=== PATIENT | female | born 1975 | race Caucasian/White ===

== ENCOUNTER 2017-12-14 15:43 | Emergency (ER) | payer OTHER ==
--- NOTE | 2017-12-14 15:48 | PDOC ---
Rapid Medical Evaluation Time Seen by Provider: 12/14/17 15:46 Medical Evaluation: Allergies Allergy/AdvReac Type Severity Reaction Status Date / Time Penicillins Allergy Rash Verified 09/05/14 07:06 I have performed a brief in-person evaluation of this patient. The patient presents with a chief complaint of: laceration to right index finger Pertinent physical exam findings: horizontal laceration to right distal finger pad I have ordered the following: tetanus The patient will proceed to the ED for further evaluation.
[2017-12-14 15:49] VITALS: BP 125/77; PULSE 78; TEMP 98; BMI 23.3
[2017-12-14] MEDS ORDERED: DIPHTH,PERTUSS(ACELL),TET 0.5 ML DISP.SYRIN IM ONE (15:49)
--- NOTE | 2017-12-14 15:53 | PDOC ---
History of Present Illness - General Chief Complaint: Laceration Stated Complaint: LT FINGER LACERATION Time Seen by Provider: 12/14/17 15:46 History Source: Patient Exam Limitations: No Limitations - History of Present Illness Initial Comments: 12/14/17 18:42 42 yr female with laceration to the left index finger at home using mandolin. unable to control the bleeding. Timing/Duration: reports: just prior to arrival Past History - Past Medical History Allergies/Adverse Reactions: Allergies Allergy/AdvReac Type Severity Reaction Status Date / Time clindamycin Allergy Verified 12/14/17 15:47 Penicillins Allergy Rash Verified 12/14/17 15:47 Home Medications: Ambulatory Orders NK [No Known Home Medication] 12/14/17 COPD: No - Surgical History Abdominal Surgery: Yes (tubal ligation) Appendectomy: Yes - Suicide/Smoking/Psychosocial Hx Smoking History: Former smoker Have you smoked in the past 12 months: No Information on smoking cessation initiated: No Hx Alcohol Use: Yes (occas) Drug/Substance Use Hx: No Substance Use Type: None Hx Substance Use Treatment: No Review of Systems - Review of Systems Able to Perform ROS?: Yes Is the patient limited Pashto proficient: No *Physical Exam - Vital Signs Last Vital Signs Temp Pulse Resp BP Pulse Ox 98.0 F 78 18 125/77 100 12/14/17 15:47 12/14/17 15:47 12/14/17 15:47 12/14/17 15:47 12/14/17 15:47 - Physical Exam General Appearance: Yes: Nourished, Appropriately Dressed Integumentary: positive: Normal Color, Dry, Warm, Other (left index finger tip with 1cm flap laceration , nv intact ) Neurologic: positive: Fully Oriented, Motor Strength 5/5 Procedures - Laceration/Wound Repair Left Distal Finger 2nd digit Wound Length: to 2.5 cm Wound Explored: clean Wound's Depth, Shape: flap Irrigated w/ Saline: Yes Betadine Prep: Yes Anesthesia: 1% Lidocaine Wound Repaired With: Sutures, Steri-strips (2) Suture Size/Type: 5:0, nylon Number of Sutures: 3 Layer Closure: No Sterile Dressing Applied: Yes Medical Decision Making - Medical Decision Making 12/14/17 18:45 cc: finger laceration FROM nv intact no tendon involvement or nerve involvement repaired with sutures and steri strips wound care discussed pt understands the dc inst *DC/Admit/Observation/Transfer Diagnosis at time of Disposition: Finger laceration Qualifiers: Encounter type: initial encounter Finger: index finger Damage to nail status: without damage Foreign body presence: without foreign body Laterality: left Qualified Code(s): S61.211A - Laceration without foreign body of left index finger without damage to nail, initial encounter - Discharge Dispostion Disposition: HOME Condition at time of disposition: Good - Referrals - Patient Instructions Printed Discharge Instructions: DI for Laceration Repair Additional Instructions: keep clean and dry do not get wet have stitches removed in 7 days apply a thin layer of bacitracin daily and keep dry and covered - Post Discharge Activity Forms/Work/School Notes: Back to Work
== END 2017-12-14 16:23 | disposition home or self-care (01) ==
LOC: JERFT 15:43
PROC: 3E0234Z Introduction of Serum, Toxoid and Vaccine into Muscle, Percutaneous Approach (ICD-10-PCS; principal; 2017-12-14)
PROC: 0HQGXZZ Repair Left Hand Skin, External Approach (ICD-10-PCS; 2017-12-14)
DX: S61.211A Laceration without foreign body of left index finger without damage to nail, initial encounter (principal); W27.4XXA Contact with kitchen utensil, initial encounter; Y93.G1 Activity, food preparation and clean up; Y92.010 Kitchen of single-family (private) house as the place of occurrence of the external cause
CPT/HCPCS: 99281-25

== ENCOUNTER 2019-12-09 13:23 | Emergency (ER) | payer OTHER ==
[2019-12-09] MEDS ORDERED: KETOROLAC TROMETHAMINE 15 MG/ML VIAL IM ONE (13:33)
[2019-12-09] MEDS ORDERED: KETOROLAC TROMETHAMINE 30 MG/1 ML VIAL ONE (13:47)
[2019-12-09 14:01] VITALS: BP 138/89; PULSE 80; TEMP 97.8; BMI 24.0
[2019-12-09] MEDS ORDERED: LIDOCAINE 5% TOPICAL PATCH ONE (14:07)
[2019-12-09] MEDS ORDERED: METHOCARBAMOL 500 MG TABLET PO ONE (14:07)
[2019-12-09] MEDS ORDERED: METHOCARBAMOL 500 MG TABLET ONE (14:07)
[2019-12-09] MEDS ORDERED: LIDOCAINE 5% TOPICAL PATCH TP ONE (14:07)
--- NOTE | 2019-12-09 14:11 | PDOC ---
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 Patient reports sudden cramp to lower back after lifting patient and now with 3 out of 10 lower back pain radiating to posterior thigh with increased with movement to 8 out of 10 pain. Denies urinary or fecal incontinence. Denies saddle paresthesia. Patient has not taken anything for symptoms Occurred: reports: this afternoon <Graham Patino - Last Filed: 12/11/19 08:24> <Mark Wallis - Last Filed: 12/13/19 09:15> - General Chief Complaint: Injury Stated Complaint: INJURY Time Seen by Provider: 12/09/19 14:06 Past History - Past Medical History COPD: No - Surgical History Abdominal Surgery: Yes (tubal ligation) Appendectomy: Yes - Psycho Social/Smoking Cessation Hx Smoking History: Never smoked Have you smoked in the past 12 months: No Information on smoking cessation initiated: No Hx Alcohol Use: No Drug/Substance Use Hx: No Substance Use Type: None Hx Substance Use Treatment: No <Graham Patino - Last Filed: 12/11/19 08:24> <Mark Wallis - Last Filed: 12/13/19 09:15> - Past Medical History Allergies/Adverse Reactions: Allergies Allergy/AdvReac Type Severity Reaction Status Date / Time clindamycin Allergy Verified 12/09/19 14:02 Penicillins Allergy Rash Verified 12/09/19 14:02 Home Medications: Ambulatory Orders Lidocaine Patch Removal [Lidoderm Patch Removal] 1 each MC DAILY PRN #12 each Methocarbamol [Robaxin -] 500 mg PO BID #14 tablet 12/09/19 Naproxen 500 mg PO BID PRN #20 tablet 12/09/19 Review of Systems - Review of Systems Able to Perform ROS?: Yes Is the patient limited Korean proficient: No Constitutional: No: Chills, Fever, Malaise HEENTM: No: Symptoms Reported, See HPI, Eye Pain, Blurred Vision, Tearing, Recent change in vision, Double Vision, Cataracts, Ear Pain, Ocular Prothesis, Ear Discharge, Nose Pain, Nose Congestion, Tinnitus, Nose Bleeding, Hearing Loss , Throat Pain, Throat Swelling, Mouth Pain, Dental Problems, Difficulty Swallowing, Mouth Swelling, Other Respiratory: No: Symptoms reported, See HPI, Cough, Orthopnea, Shortness of Breath, SOB with Exertion, SOB at Rest, Stridor, Wheezing, Productive cough, Hemoptysis, Other Cardiac (ROS): No: Symptoms Reported, See HPI, Chest Pain, Edema, Irregular Heart Rate, Lightheadedness, Palpitations, Syncope, Chest Tightness, Other ABD/GI: No: Symptoms Reported, See HPI, Nausea, Vomiting : No: Symptoms Reported, Burning, Dysuria, Discharge, Frequency Musculoskeletal: Yes: Symptoms Reported, See HPI, Back Pain, Muscle Pain ( posterior left thigh) Integumentary: No: Symptoms Reported Neurological: Yes: Symptoms reported, See HPI, Tingling (posterior left thigh). No: Headache All Other Systems: Reviewed and Negative <Graham Patino - Last Filed: 12/11/19 08:24> *Physical Exam - Vital Signs Last Vital Signs Temp Pulse Resp BP Pulse Ox 97.8 F 80 17 138/89 100 12/09/19 13:30 12/09/19 13:30 12/09/19 13:30 12/09/19 13:30 12/09/19 13:30 - Physical Exam 12/09/19 14:10 GENERAL: Well developed, well nourished. Awake and alert in moderate acute distress. PULMONARY: No evidence of respiratory distress. MUSCULOSKELETAL : Moderate tenderness over posterior paravertebral muscle lumbosacral spine of L4-S1 on bilateral sides. No bony deformities SKIN: Warm and dry. Normal capillary refill. No rashes. NEUROLOGICAL: Alert, awake, appropriate. No motor deficits in the lower extremities. Gait is normal without ataxia. PSYCHIATRIC: Cooperative. Good eye contact. Appropriate mood and affect. General Appearance: Yes: Nourished, Appropriately Dressed, Apparent Distress <Graham Patino - Last Filed: 12/11/19 08:24> - Vital Signs Last Vital Signs Temp Pulse Resp BP Pulse Ox 97.8 F 80 17 138/89 100 12/09/19 13:30 12/09/19 13:30 12/09/19 13:30 12/09/19 13:30 12/09/19 13:30 <Mark Wallis - Last Filed: 12/13/19 09:15> ED Treatment Course - Medications Given in the ED: ED Medications Discontinued Medications Generic Name Dose Route Start Last Admin Trade Name Freq PRN Reason Stop Dose Admin Ketorolac Tromethamine 30 mg 12/09/19 13:33 12/09/19 13:45 Toradol Injection - IM 12/09/19 13:34 30 mg ONCE ONE Administration <Graham Patino - Last Filed: 12/11/19 08:24> - Medications Given in the ED: ED Medications Discontinued Medications Generic Name Dose Route Start Last Admin Trade Name Freq PRN Reason Stop Dose Admin Ketorolac Tromethamine 30 mg 12/09/19 13:33 12/09/19 13:45 Toradol Injection - IM 12/09/19 13:34 30 mg ONCE ONE Administration <Mark Wallis - Last Filed: 12/13/19 09:15> Medical Decision Making - Medical Decision Making 12/09/19 14:09 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 Patient reports sudden cramp to lower back after lifting patient and now with 3 out of 10 lower back pain radiating to posterior thigh with increased with movement to 8 out of 10 pain. Denies urinary or fecal incontinence. Denies saddle paresthesia. Patient has not taken anything for symptoms Exam significant for moderate tenderness to lower lumbar sacrum of L4-S1 with mild straight leg irritation to lower back. Patient symptoms likely back strain. Toradol 30 mg IM ordered for pain and Robaxin 500 mg p.o. ordered for spasm. Topical lidocaine patch ordered for back pain. Reassess after 20 minutes 12/09/19 16:24 Patient with improvement in back pain but still have mild pain. Patient stable for discharge on naproxen and lidoderm prn for pain and robaxin for spasm with advice to do heat therapy and f/u with ortho <Graham Patino - Last Filed: 12/11/19 08:24> - Medical Decision Making The patient was seen and evaluated in conjunction with NINA Patino under my direct supervision, ancillary studies were reviewed. I independently interviewed and evaluated the patient and I agree with the plan as outlined by NINA Patino. <Mark Wallis - Last Filed: 12/13/19 09:15> Discharge - Discharge Information Problems reviewed: Yes - Admission No <Graham Patino - Last Filed: 12/11/19 08:24> <KadiMark - Last Filed: 12/13/19 09:15> - Discharge Information Clinical Impression/Diagnosis: Lumbago with sciatica, left side Qualifiers: Chronicity: acute Back pain laterality: left Qualified Code(s): M54.42 - Lumbago with sciatica, left side Condition: Stable Disposition: HOME - Additional Discharge Information Prescriptions: Lidocaine Patch Removal [Lidoderm Patch Removal] 1 each MC DAILY PRN #12 each PRN Reason: Back Pain Methocarbamol [Robaxin -] 500 mg PO BID #14 tablet Naproxen 500 mg PO BID PRN #20 tablet PRN Reason: Back Pain - Patient Discharge Instructions Patient Printed Discharge Instructions: DI for Back Pain With Sciatica Additional Instructions: Rest lower back. no heavy lifting for the next 2 days. Take prescribed medications as needed for back pains. Apply hot compress to back as needed for pain. Follow-up with orthopedics for possible MRI if symptoms persists for more than 4 days - Post Discharge Activity Work/Back to School Note: Back to Work
[2019-12-09] MEDS ORDERED: LIDOCAINE PATCH REMOVAL MC SCH (22:00)
== END 2019-12-09 15:35 | disposition home or self-care (01) ==
LOC: JER 13:23
PROC: 3E0233Z Introduction of Anti-inflammatory into Muscle, Percutaneous Approach (ICD-10-PCS; principal; 2019-12-09)
DX: M54.42 Lumbago with sciatica, left side (principal); X58.XXXA Exposure to other specified factors, initial encounter; Y93.89 Activity, other specified; Y92.239 Unspecified place in hospital as the place of occurrence of the external cause; Y99.0 Civilian activity done for income or pay
CPT/HCPCS: 99281-25

== ENCOUNTER 2021-11-14 17:36 | Emergency (ER) | payer BC | END 2021-11-14 19:25 | disposition home or self-care (01) | LOC: JVIRT 17:36 | DX: Z11.52 Encounter for screening for COVID-19 (principal) | CPT/HCPCS: C9803-CS; Q3014-GT; U0003; U0005 ==

== ENCOUNTER 2022-10-24 16:40 | Emergency (ER) | payer BC ==
[2022-10-24 17:04] VITALS: BP 120/74; PULSE 88; RESP 18; TEMP 98; BMI 23.1
[2022-10-24 17:46] LABS: EPI CELLS 5 /uL (0-25.1); HYALINE CASTS 1 /uL (0-3.1); URINE APPEARANCE CLEAR; URINE BACTERIA 344 /uL (0-1359); URINE BILIRUBIN NEGATIVE (NEGATIVE); URINE COLOR YELLOW; URINE GLUCOSE (UA) NEGATIVE (NEGATIVE); URINE KETONE NEGATIVE (NEGATIVE); URINE LEUK ESTERASE 3+ (NEGATIVE); URINE NITRITE NEGATIVE (NEGATIVE); URINE PROTEIN NEGATIVE (NEGATIVE); URINE RBC 12 /uL (0-23.9); URINE UROBILINOGEN 0.2 mg/dL (0.2-1.0); URINE WBC 739 /uL (0-25.8)
[2022-10-24] MEDS ORDERED: CEPHALEXIN MONOHYDRATE 500 MG CAPSULE (UD) PO ONE (17:58)
[2022-10-24] MEDS ORDERED: CEPHALEXIN MONOHYDRATE 500 MG CAPSULE (UD) ONE (17:58)
== END 2022-10-24 18:16 | disposition home or self-care (01) ==
LOC: JER 16:40 → JERFT 16:40
DX: N39.0 Urinary tract infection, site not specified (principal)
CPT/HCPCS: 81003; 87086; 87186; 99283-25

== ENCOUNTER 2023-01-02 12:32 | Emergency (ER) | payer OTHER, BC ==
[2023-01-02 12:53] VITALS: BP 120/76; PULSE 80; RESP 20; TEMP 98.2; BMI 23.0
[2023-01-02 13:08] LABS: BASO % 0.9 % (0-2.0); EOS % 5.4 % (0-4.5); HEMATOCRIT 39.4 % (32.4-45.2); HEMOGLOBIN 13.2 GM/dL (10.7-15.3); LYMPH % 33.5 % (8-40); MCH 31.5 pg (25.7-33.7); MCHC 33.5 g/dl (32.0-36.0); MEAN CELL VOLUME 93.8 fl (80-96); MEAN PLT VOLUME 8.3 fl (7.5-11.1); MONO % 7.1 % (3.8-10.2); NEUT % 53.1 % (42.8-82.8); PLATELET COUNT 299 10^3/uL (134-434); RDW 13.5 % (11.6-15.6); WHITE BLOOD COUNT 6.7 K/mm3 (4.0-10.0)
[2023-01-02 13:26] LABS: ALBUMIN 4.1 g/dl (3.4-5.0); CALCIUM 9.1 mg/dL (8.5-10.1)
[2023-01-02 13:27] LABS: BLOOD UREA NITROGEN 16.1 mg/dL (7-18)
[2023-01-02 13:29] LABS: CREATININE 0.7 mg/dL (0.55-1.3); URIC ACID 3.4 mg/dL (2.6-7.2)
[2023-01-02 13:30] LABS: PHOSPHOROUS 3.7 mg/dL (2.5-4.9); TOT PROT 7.2 g/dl (6.4-8.2)
[2023-01-02 13:31] LABS: BILIRUBIN,TOTAL 0.5 mg/dL (0.2-1)
[2023-01-02 18:48] LABS: HIV INTERPRETATION NEGATIVE (NEGATIVE)
== END 2023-01-02 14:07 | disposition home or self-care (01) ==
LOC: JERFT 12:32
DX: Z77.21 Contact with and (suspected) exposure to potentially hazardous body fluids (principal)
CPT/HCPCS: 36415; 80053; 82465; 82977; 83615; 84100; 84478; 84550; 85025; 86704; 86803; 87340; 87389; 87517; 99283-25